=== PATIENT | male | born 1960 | race Caucasian/White ===

== ENCOUNTER 2019-09-26 09:00 | Observation (INO) | payer OTHER ==
[2019-09-26 10:20] LABS: Hemoglobin 15.8 g/dL (14.0-18.0); Mean Corpuscular HGB CONC 33.2 g/dL (32.0-36.0); Mean Corpuscular Hemoglobin 31.9 pg (27.0-31.0); Mean Corpuscular Volume 95.9 fL (78.0-98.0); Mean Platelet Volume 8.3 fL (7.4-10.4); Platelet Count 123 thou/uL (130-400); RBC Distribution Width 13.6 % (11.5-14.5); Red Blood Cell (RBC) Count 4.95 mill/uL (4.70-6.10); White Blood Cell (WBC) Count 12.5 thou/uL (4.8-10.8)
--- NOTE | 2019-09-26 10:30 | ULT ---
EXAM: Right lower extremity venous Doppler US HISTORY: Right lower extremity edema and pain FINDINGS: Grayscale, color-flow, Doppler evaluation, spectral analysis of the right lower extremity venous stru ctures is performed with 2-D imaging. The right common femoral, superficial femoral, popliteal, posterior tibial, proximal greater saphenous and profunda femoral veins are imaged. There is normal luminal compressibility, flow, and augmentation the visualized deep venous structures of the right lower extremity. IMPRESSION: No evidence of a deep vein thrombosis in the right lower extremity.
[2019-09-26 10:41] LABS: Band 16 % (5-11); Lymphocytes 9 % (21-51); MDiff Complete? YES; Monocytes 4 % (0-10); Neutrophil 71 % (42-75); Platelet Morphology Comment Appears Decreased; RBC Morphology Normal
[2019-09-26 10:44] LABS: ALT (SGPT) 16 U/L (8-55); AST (SGOT) 23 U/L (5-34); Albumin 3.4 g/dL (3.5-5.0); Alkaline Phosphatase 83 U/L (40-110); Anion Gap 15 mmol/L (10-20); BUN (Urea Nitrogen) 17 mg/dL (8.4-25.7); Bilirubin, Total 1.4 mg/dL (0.2-1.2); Calc. Creatinine Clearance 0 mL/min (70-130); Calcium 9.4 mg/dL (7.8-10.44); Carbon Dioxide 21 mmol/L (22-29); Chloride 105 mmol/L (98-107); Estimated GFR-MDRD Greater than 90; Globulin 3.8 g/dL (2.4-3.5); Glucose 84 mg/dL (70-105); Potassium 3.8 mmol/L (3.5-5.1); Protein, Total 7.2 g/dL (6.0-8.3); Sodium 137 mmol/L (136-145)
[2019-09-26] MEDS ORDERED: Piperacillin/Tazobactam 4.5 GM VIAL ONE (11:29)
--- NOTE | 2019-09-26 12:09 | PDOC.FPRHP ---
- History of Present Illness Chief Complaint: RLE pain History of Present Illness: 59yo freedom impaired M with pmh of obesity presents with 9 hour history of spreading redness on RLE that started around the ankle. Since 3am over the span of 9 hours the erythema spread up to his medial thigh almost up to the groin. Redness is painful to touch and painful to walk on his leg. He denies any recent trauma or possible sources of infection. Endorses subjective fevers/ chills, reports fever up to 102 in fpc. Denies nausea/vomiting. ED Course: Vanc and Zosyn - Allergies/Adverse Reactions Allergies Allergy/AdvReac Type Severity Reaction Status Date / Time Penicillins Allergy Mild Verified 09/26/19 14:02 - Home Medications Comments: Allopurinol Atorvastatin Levothyroxin Celexa - History PMHx: Gout, Allopurinol, HLD, Depression, hypothyroid, colon cancer (2010, in remission, s/p colectomy with colostomy bag, chemo, and radiation) PSHx: partial colectomy FHx: non contributory Social: former smoker (30 pack years), no illicit drugs - Review of Systems General: reports: fever/chills. denies: fatigue ENT: denies: nasal congestion, rhinorrhea Respiratory: denies: cough, congestion, shortness of breath Cardiovascular: denies: chest pain, palpitation Gastrointestinal: denies: nausea, vomiting, diarrhea, constipation Genitourinary: denies: incontinence, dysuria Skin: reports: lesions. denies: rashes Musculoskeletal: denies: tenderness, stiffness Neurological: denies: numbness, syncope, seizure Psychological: denies: anxiety, depression - Vital signs BP: 124/74, MAP: 90, Pulse: 63, Resp: 17, Temp: 99 (Oral), Pain: 0, O2 sat: 99 on (Room Air), Time: 09/26/2019 09:08. weight 118kg - Physical Exam Constitutional: NAD, awake, alert and oriented -Constitutional: obese HEENT: EOMI, conjunctiva clear, grossly normal vision, grossly normal hearing Neck: supple, trachea midline Chest: no-tender to palpation Heart: RRR, normal S1/S2 Lungs: CTAB, no respiratory distress Abdomen: soft, non-tender Musculoskeletal: normal structure, normal tone Neurological: no focal deficit Skin: good turgor, capillary refill <2 seconds -Skin: RLE: erythema, ttp, marked with marker Heme/Lymphatic: no purpura, no petechia Psychiatric: normal mood and affect, good judgment and insight FMR H&P: Results - Labs Result Diagrams: 09/26/19 10:02 09/26/19 10:02 Lab results: WBC 12.5 thou/uL (4.8-10.8) H 09/26/19 10:02 Hgb 15.8 g/dL (14.0-18.0) 09/26/19 10:02 Hct 47.5 % (42.0-52.0) 09/26/19 10:02 MCV 95.9 fL (78.0-98.0) 09/26/19 10:02 Plt Count 123 thou/uL (130-400) L 09/26/19 10:02 Band Neuts % (Manual) 16 % (5-11) H 09/26/19 10:02 Sodium 137 mmol/L (136-145) 09/26/19 10:02 Potassium 3.8 mmol/L (3.5-5.1) 09/26/19 10:02 Chloride 105 mmol/L (98-107) 09/26/19 10:02 Carbon Dioxide 21 mmol/L (22-29) L 09/26/19 10:02 BUN 17 mg/dL (8.4-25.7) 09/26/19 10:02 Creatinine 0.78 mg/dL (0.7-1.3) 09/26/19 10:02 Glucose 84 mg/dL (70-105) 09/26/19 10:02 Lactic Acid 1.1 mmol/L (0.5-2.2) 09/26/19 11:17 Calcium 9.4 mg/dL (7.8-10.44) 09/26/19 10:02 Total Bilirubin 1.4 mg/dL (0.2-1.2) H 09/26/19 10:02 AST 23 U/L (5-34) 09/26/19 10:02 ALT 16 U/L (8-55) 09/26/19 10:02 Alkaline Phosphatase 83 U/L (40-110) 09/26/19 10:02 Serum Total Protein 7.2 g/dL (6.0-8.3) 09/26/19 10:02 Albumin 3.4 g/dL (3.5-5.0) L 09/26/19 10:02 FMR H&P: A/P - Problem List (1) Cellulitis Current Visit: Yes Status: Acute Code(s): L03.90 - CELLULITIS, UNSPECIFIED (2) Gout Current Visit: Yes Status: Acute Code(s): M10.9 - GOUT, UNSPECIFIED (3) Hypothyroid Current Visit: Yes Status: Acute Code(s): E03.9 - HYPOTHYROIDISM, UNSPECIFIED (4) HLD (hyperlipidemia) Current Visit: Yes Status: Acute Code(s): E78.5 - HYPERLIPIDEMIA, UNSPECIFIED - Plan Cellulitis with rapid progression A- Pt has spread of infection over most of his RLE in the span of 9 hours, fevers in fpc up to 102, afebrile in ED. Pt not meeting sirs criteria. Doppler US is negative for DVT. Received 1 dose Vanc/Zosyn in ED P- continue vanc -DC zosyn -start clinda -will monitor for progression of infection -Likely switch to PO tomorrow Gout, hypothyroid, depression, HLD -stable, continue home meds CODE: FULL dispo: OBS, MEDICAL fluid: SL VTE ppx: lovenox Addendum - Attending - Attending Attestation Date/Time: 09/26/19 5817 I personally evaluated the patient and discussed the management with Dr. Pfeiffer. I agree with the History, Examination, Assessment and Plan documented above with any addition or exceptions noted below. 59 yo WM presents w/ right leg swelling that started at 0300 at lower leg and quickly spread up interior thigh. Has not been on PO abx. Exam unremarkable except for warmth and erythema on right leg that did not extend beyond border of cyndi. Labs unremarkable. IV clinda. Observation overnight. Possible d/c tomorrow if improving.
[2019-09-26] MEDS ORDERED: Ondansetron PF 4 MG/2 ML Vial IVP PRN (12:28)
[2019-09-26] MEDS ORDERED: Ondansetron ODT 4 MG TAB PO PRN (12:28)
[2019-09-26] MEDS ORDERED: Calcium Carbonate 500 MG ChewTAB PO PRN (12:28)
[2019-09-26] MEDS ORDERED: Acetaminophen 325 MG TAB PO PRN (12:28)
[2019-09-26] MEDS ORDERED: Acetaminophen 650 MG Suppository PR PRN (12:28)
[2019-09-26] MEDS ORDERED: Melatonin 3 MG TAB PO PRN (12:28)
[2019-09-26 16:00] VITALS: BMI 41.1
[2019-09-26] MEDS: Clindamycin/D5W 600 MG in Premix Bag 1 BAG IVPB SCH ×2 (17:57→23:36)
[2019-09-26] MEDS: Ibuprofen 600 MG TAB PO PRN (21:41)
[2019-09-27] MEDS: Clindamycin/D5W 600 MG in Premix Bag 1 BAG IVPB SCH (05:21)
[2019-09-27] MEDS: Ibuprofen 600 MG TAB PO PRN ×2 (05:26→13:01)
[2019-09-27 06:03] LABS: Band 8 % (5-11); Eosinophils 3 % (0-10); Hemoglobin 14.2 g/dL (14.0-18.0); Lymphocytes 5 % (21-51); MDiff Complete? YES; Mean Corpuscular HGB CONC 33.9 g/dL (32.0-36.0); Mean Corpuscular Volume 94.6 fL (78.0-98.0); Mean Platelet Volume 7.8 fL (7.4-10.4); Monocytes 9 % (0-10); Neutrophil 75 % (42-75); Platelet Count 125 thou/uL (130-400); RBC Distribution Width 13.4 % (11.5-14.5); Red Blood Cell (RBC) Count 4.44 mill/uL (4.70-6.10); White Blood Cell (WBC) Count 11.3 thou/uL (4.8-10.8)
[2019-09-27] MEDS ORDERED: Enoxaparin Sodium 40 MG/0.4 ML SYRINGE SC SCH (09:00)
[2019-09-27] MEDS ORDERED: Lactinex Tablet PO SCH (09:00)
--- NOTE | 2019-09-27 09:10 | PDOC.FM ---
- Subjective Subjective: pt reports pain has improved minimally, no fever/chills, no n/v - Objective Vital Signs & Weight: Vital Signs (12 hours) Temp Pulse Resp BP BP Pulse Ox 09/27/19 07:52 98.1 F 62 18 140/80 97 09/27/19 04:38 97.3 F L 54 L 14 108/71 98 09/26/19 23:54 99.0 F 63 15 101/64 97 Weight Weight 122.561 kg I&O: 09/26/19 09/27/19 09/28/19 06:59 06:59 06:59 Intake Total 1710 Output Total 50 Balance 1660 Result Diagrams: 09/27/19 05:31 09/26/19 10:02 Phys Exam - Physical Examination Constitutional: NAD HEENT: moist MMs, sclera anicteric Neck: supple, full ROM Respiratory: no wheezing, clear to auscultation bilateral Cardiovascular: RRR, no significant murmur Gastrointestinal: soft, non-tender Musculoskeletal: no edema, pulses present Neurological: normal sensation, moves all 4 limbs Psychiatric: normal affect, A&O x 3 Skin: normal turgor Deviation from normal: border of erythema receding 3-6cm on all borders, less TTP Dx/Plan (1) Cellulitis Code(s): L03.90 - CELLULITIS, UNSPECIFIED Status: Acute (2) Gout Code(s): M10.9 - GOUT, UNSPECIFIED Status: Acute (3) Hypothyroid Code(s): E03.9 - HYPOTHYROIDISM, UNSPECIFIED Status: Acute (4) HLD (hyperlipidemia) Code(s): E78.5 - HYPERLIPIDEMIA, UNSPECIFIED Status: Acute - Plan Plan: Cellulitis with rapid progression A- Pt has spread of infection over most of his RLE in the span of 9 hours, fevers in fdc up to 102, afebrile in ED. Pt not meeting sirs criteria. Doppler US is negative for DVT. Received 1 dose Vanc/Zosyn in ED. Responding well to vanc and clinda IV. P- will switch to PO clinda, likely DC Vanc and add bactrim -possible DC today Gout, hypothyroid, depression, HLD -stable, continue home meds CODE: FULL VTE ppx: lovenox Addendum - Attending - Attending Attestation Date/Time: 09/27/19 1215 I personally evaluated the patient and discussed the management with Dr. Pfeiffer. I agree with the History, Examination, Assessment and Plan documented above with any addition or exceptions noted below. Patients feels better than yesterday but his leg is still a big sore. On exam the erythema has retreated from the borders. He has edema with wrinkling on the right, slight edema on the left. He leg is largely NTTP on my exam. Will transition him to PO antibiotics and monitor. Possible d/c this PM.
[2019-09-27] MEDS ORDERED: Clindamycin 150 MG CAP PO SCH (12:00)
--- NOTE | 2019-09-27 18:42 | DIS ---
DATE OF ADMISSION: 09/26/2019 DATE OF DISCHARGE: 09/27/2019 RESIDENT: Ashok Pfeiffer MD I saw the patient for a total of 2 days. ADMITTING ATTENDING: Liam Tavarez MD DISCHARGE ATTENDING: Alex Cain MD CONSULTS: None. PROCEDURES: On 09/26/2019, vascular ultrasound; impression, no evidence of DVT. DISCHARGE MEDICATIONS: 1. Atorvastatin 10 mg p.o. daily. 2. Levothyroxine 75 mcg p.o. daily. 3. Allopurinol 300 mg p.o. daily. 4. Naproxen 500 mg p.o. b.i.d., resumed at home. 5. Citalopram 40 mg p.o. daily. 6. Acetaminophen. 7. Clindamycin 600 mg p.o. q.6 hours, 10 days. 8. Lactobacillus one tablet p.o. daily, 3 months. 9. Bactrim single strength one tablet p.o. b.i.d. 10 days. DISCONTINUED MEDICATIONS: None. PRIMARY DIAGNOSIS: Cellulitis. SECONDARY DIAGNOSES: Gout, hypothyroidism, depression, and hyperlipidemia. HISTORY OF PRESENT ILLNESS/HOSPITAL COURSE: This is a 59-year-old gentleman who presented to the hospital with right lower extremity tenderness and erythema. He was admitted for cellulitis with rapid progression over the course of 9 hours. His cellulitis progressed from his ankle all the way up to his groin and so, he was admitted for IV antibiotics. The patient responded well and quickly was transitioned to p.o. antibiotics, tolerated those well also and showed continued improvement of erythema and tenderness to palpation and so, the patient was discharged back to detention with 10 days of p.o. antibiotics. DISPOSITION: Stable. DISCHARGE INSTRUCTIONS: 1. Location: Residential. 2. Activity: As tolerated. 3. Followup: Follow up with PCP in 3 to 7 days. 4. Diet: Heart healthy, diabetic diet. Job ID: [id number]
[2019-09-27 19:26] VITALS: BP 133/59; TEMP 97.7
[2019-09-27] MEDS ORDERED: Sulfameth/Trimethoprim SS 400-80MG TAB PO SCH (21:00)
== END 2019-09-27 16:43 ==
LOC: ERS 09:00 → EEVIPCON 12:25 → ERHOLD 12:25 → T4-A 14:56
PROVIDERS: ADMIT Family Medicine; ATTEND Emergency Medicine
DX: L03.115 Cellulitis of right lower limb (principal); M10.9 Gout, unspecified; E03.9 Hypothyroidism, unspecified; F32.9 Major depressive disorder, single episode, unspecified; E78.5 Hyperlipidemia, unspecified; E66.9 Obesity, unspecified; Z68.41 Body mass index [BMI] 40.0-44.9, adult; Z85.038 Personal history of other malignant neoplasm of large intestine; Z87.891 Personal history of nicotine dependence; Z79.899 Other long term (current) drug therapy; Z88.0 Allergy status to penicillin; Z90.49 Acquired absence of other specified parts of digestive tract; Z93.3 Colostomy status
CPT/HCPCS: 36415; 80053; 83605; 85025; 96365; 96366; 96367; 96372; 96376; G0378; J1650; J2543; J3370; J3490; J7050